=== PATIENT | male | born 2000 ===

== ENCOUNTER 2024-09-03 12:26 | Emergency (ER) | payer MEDICAID, SELFPAY ==
[2024-09-03 12:30] VITALS: BP 129/82; PULSE 79; RESP 20; TEMP 36.6; O2SAT 100; BMI 17.9
--- NOTE | 2024-09-03 12:30 | ED_ITS ---
[facility] - General Adult General Chief complaint: Eye Problems Stated complaint: pink eye ? Source: patient Mode of arrival: ambulatory Limitations: no limitations History of Present Illness ED Provider: Ira CABRAL narrative: Patient is a 24-year-old male presenting with complaint of left eye itching, redness and irritation for the past 4 days. Crusting in the morning. Feels as though symptoms are spreading to right eye. Does not wear contact lenses. Denies any concern for foreign body. Denies pain with eye movements. MD complaint: left eye irritation Onset (ago): day(s) Location: eyes Related Data Previous Rx's ?Medication ?Instructions ?Recorded ofloxacin 0.3 % eye drops See Rx Instructions ophthalmic 09/03/24 (eye) .COMPLEX #10 mL Allergies Allergy/AdvReac Type Severity Reaction Status Date / Time No Known Allergies Allergy Verified 09/03/24 12:31 Review of Systems Review of Systems: as per HPI Yes all other systems are reviewed and are negative Constitutional: Constitutional: Reports as per HPI Physical Exam ED Vital Signs: Vital signs have been reviewed and appear to be correct. Blood pressure normal. Heart rate normal. Respiratory rate normal. Temperature normal. Oxygen saturation normal. Const General: cooperative, healthy appearing and no acute distress Orientation/consciousness: oriented to person, oriented to place, oriented to time and patient oriented x3 Limitations: no limitations HENMT Head: Yes normocephalic and Yes atraumatic Ears: external ears normal General nose exam: Normal external nose present Face and sinus: Yes face symmetric Mouth: oropharynx normal and moist mucous membranes Throat: Yes uvula midline Eyes Alignment and Position: alignment normal and position normal Periorbital: periorbital findings normal Eyelids: Yes eyelids normal Conjunctivae: conjunctival abnormal left conjunctival injection diffuse Sclerae: sclerae normal Pupils: Equal, round and reactive pupils present EOM: EOMs intact bilaterally (pain free bilat) Neck Neck: Yes normal visual inspection and Yes supple Resp Effort & Inspection: normal respiratory effort and able to speak in complete sentences Auscultation: clear to auscultation bilaterally Cardio Rate: regular rate Rhythm: regular rhythm Heart sounds: S1 normal heart sound present and S2 normal heart sound present GI Palpation (GI): Soft to palpation and nontender Auscultation: normoactive bowel sounds General: Yes no CVA tenderness Back/Spine/Pelvis Back: no CVA tenderness Skin General skin exam: elasticity normal and turgor normal Neuro General: oriented to person, oriented to place, oriented to time, patient oriented x3, moves all extremities, no focal motor deficits and CN's II-XI intact bilaterally Cranial nerves: Yes Equal, round and reactive pupils present Cognition (Neuro): normal cognition Extrem General: Yes full ROM, Yes no pedal edema and Yes no calf tenderness Psych Mental Status: mental status grossly normal Affect: normal affect Thought process: Normal thought process present Medical Decision Making Medical Decision Making [facility] Narrative: Patient is a 24-year-old male presenting with complaint of left eye itching, redness and irritation for the past 4 days. On exam patient is awake, A+Ox3, VS WNL, afebrile, normal neurological exam without focal deficits, physical exam findings as above. Given reported symptoms and physical exam findings, initial differential includes viral vs bacterial vs allergic conjunctivitis. Do not suspect preseptal or orbital cellulitis. Will treat with ofloxacin drops, return symptoms discussed. Follow up with pcp. Patient verbalized understanding of and agreement with plan. Differential Diagnosis Differential Diagnoses: The differential diagnosis associated with the presentation includes as per [facility] External Record Review External record reviewed: Inpatient record, Office record and Outpatient record Prescription Management I considered prescription management with: Antibiotic Discharge Plan Discharge Clinical Impression: Conjunctivitis Qualifiers: Conjunctivitis type: acute Laterality: left Patient Disposition: Home, Self-Care Instructions: Conjunctivitis (ED) Additional Instructions: You were evaluated in the emergency department today for eye redness, itching, and discharge. You are being treated for conjunctivitis with antibiotic eyedrops. Please complete the full course as prescribed. Be sure to wash hands thoroughly before and after touching your eyes. You should follow up with your primary care provider or range master this week. Return to the emergency department if you develop changes in vision, increasing pain, fever 100.4F or greater, or any other concerning symptoms. Prescriptions: New ofloxacin 0.3 % drops See Rx Instructions .ROUTE .COMPLEX Qty: 10 0RF Rx Instructions: put 1-2 drps into affected eye(s) every 2-4 h x 2 days, then 1-2 drps 4 times/day days 3-7 Print Language: Greek
[2024-09-03 12:42] VITALS: BP 129/82; PULSE 79; RESP 20; TEMP 36.6; O2SAT 100
== END 2024-09-03 12:42 | disposition home or self-care (01) ==
PROVIDERS: Emergency Provider Emergency Medicine
DX: H10.32 Unspecified acute conjunctivitis, left eye (principal); H57.12 Ocular pain, left eye
CPT/HCPCS: 99282; 99283

== ENCOUNTER 2024-09-23 09:12 | Emergency (ER) | payer MEDICAID, SELFPAY ==
[2024-09-23 09:17] VITALS: BP 136/79; PULSE 88; RESP 16; TEMP 37; O2SAT 99; BMI 21.6
--- NOTE | 2024-09-23 09:35 | ED.EYEPROB ---
HPI - Eye Problem General Chief complaint: Eye Problems Stated complaint: l eye swelling Time Seen by Provider: 09/23/24 09:27 Source: patient, RN notes reviewed and old records reviewed Mode of arrival: ambulatory History of Present Illness ED Provider: Libra Cueva PA-C HPI Narrative: 24-year-old male with no significant past medical history presenting to the ED complaining of left eyebrow erythema, swelling, and discomfort x3 days. States had ingrown eyebrow hair which he pulled out and then squeezed at home with small amount of pus expressed. No reports increasing swelling. Denies vision change or loss, nausea, vomiting, fever, pain with EOMs, trauma Related Data Previous Rx's ?Medication ?Instructions ?Recorded ofloxacin 0.3 % eye drops See Rx Instructions ophthalmic 09/03/24 (eye) .COMPLEX #10 mL amoxicillin 875 mg-potassium 1 tab PO BID 7 days #14 tabs 09/23/24 clavulanate 125 mg tablet Allergies Allergy/AdvReac Type Severity Reaction Status Date / Time No Known Allergies Allergy Verified 09/23/24 09:19 Review of Systems Review of Systems: Yes all other systems are reviewed and are negative Constitutional: Constitutional: Reports as per HPI Eyes: Eyes: Denies photophobia PMFSH Past Medical History Attestation statement: The following information was validated with the patient. Source: old records reviewed Social History Social History Advance Directives: No Advance Directives Information Provided: Yes Physical Exam Vital Signs: Vital Signs: Last Vital Signs Temp 98.6 F 09/23/24 09:17 Pulse 88 09/23/24 09:17 Resp 16 09/23/24 09:17 BP 136/79 09/23/24 09:17 Pulse Ox 99 09/23/24 09:17 O2 Del Method Room Air 09/23/24 09:17 BMI result Body Mass Index 21.6 Const: General: cooperative, healthy appearing and no acute distress Orientation/consciousness: patient oriented x3 Limitations: no limitations HEENT: Head: Yes normal to inspection and Yes atraumatic Ears: hearing grossly normal bilaterally General nose exam: Normal external nose present Face and sinus: Yes normal facial exam Eyes: Other: Left lateral eyebrow with appreciable swelling, erythema, and induration. Mild surrounding swelling extending to infraorbital region. EOMs intact without entrapment or pain. No appreciable ocular involvement. Conjunctivae: conjunctivae normal Sclerae: sclerae normal Corneas: corneas normal Pupils: Equal, round and reactive pupils present EOM: EOMs intact bilaterally and no movement deficit Direct Ophthalmoscopy: normal light reflex and No photophobia Neck: Neck: Yes normal visual inspection and Yes no meningeal signs Resp: Effort & Inspection: normal respiratory effort and no respiratory distress Cardio: Rate: regular rate Skin: Rashes: no rashes Wounds: no wounds Neuro: General: patient oriented x3, tone normal and no meningeal signs Cranial nerves: Yes CN's II-XII intact bilaterally and Yes Equal, round and reactive pupils present Gait exam (Neuro): Normal gait present Extrem: General: Yes normal to inspection Medical Decision Making Medical Decision Making MDM Narrative: 24-year-old male with no significant past medical history presenting to the ED complaining of left eyebrow erythema, swelling, and discomfort x3 days. On exam vital signs stable, NAD, nontoxic appearing, physical exam as noted above. Concern for preseptal cellulitis vs indurated abscess. No evidence of orbital cellulitis or drainable collection at this time. Low suspicion for deeper infection including osteomyelitis Plan: P.o. antibiotics, PCP follow-up Please refer to course for remaining clinical decision making, interpretation of labs/imaging results, and discussions with consultants and/or family members. Results discussed with patient including worrisome signs and symptoms and strict return precautions, and when to return to the emergency department. They verbalized understanding and feel safe for discharge at this time. Differential Diagnosis Differential Diagnoses: The differential diagnosis associated with the presentation includes As above External Record Review External record reviewed: Inpatient record, Office record, Outpatient record, Prior outpatient labs, Prior outpatient radiology, Primary care record and Outside ED record Tests considered The following testing was considered but not selected: As above Prescription Management I considered prescription management with: Antibiotic Discharge Plan Discharge Clinical Impression: Preseptal cellulitis of left eye Patient Disposition: Home, Self-Care Instructions: Periorbital Cellulitis in Adults (ED) Additional Instructions: Augmentin as an antibiotic please take as prescribed Continue to apply warm compresses Take Tylenol and Motrin for pain/swelling Follow-up with her doctor If area worsens, becomes increasingly swollen, red, turns to a carbajal, you fever, vision changes return to the ED Prescriptions: New amoxicillin-pot clavulanate 875-125 mg tablet 1 tab PO BID 7 Days Qty: 14 0RF No Action ofloxacin 0.3 % drops See Rx Instructions .ROUTE .COMPLEX Qty: 10 0RF Rx Instructions: put 1-2 drps into affected eye(s) every 2-4 h x 2 days, then 1-2 drps 4 times/day days 3-7 Referrals: Physician,None [Primary Care Provider] - 5 days Stand Alone Forms: Work/School Release Print Language: Romansh
[2024-09-23 10:01] VITALS: BP 136/79; PULSE 88; RESP 16; TEMP 37; O2SAT 99
== END 2024-09-23 10:02 | disposition home or self-care (01) ==
PROVIDERS: Emergency Provider Emergency Medicine Emergency Medical Services
DX: L03.213 Periorbital cellulitis (principal); L53.9 Erythematous condition, unspecified; Z79.899 Other long term (current) drug therapy
CPT/HCPCS: 99282; 99283

== ENCOUNTER 2024-11-18 17:41 | Emergency (ER) | payer OTHER, SELFPAY ==
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
[2024-11-18 17:55] VITALS: BP 132/80; PULSE 90; RESP 16; TEMP 36.9; O2SAT 98; BMI 18.0
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
--- NOTE | 2024-11-18 18:39 | PC.NURSE ---
pt a&ox3, c/o 05/04 headache/neck stiffness an dmid back pain with walking, pt admitted that he did not take any OTC medications to help with pain at home. pt awaiting radiology, call ludwig within reach, plan of care ongoing.
[2024-11-18 20:19] VITALS: BP 114/62; PULSE 74; RESP 16; TEMP 36.9; O2SAT 97
[2024-11-18] MEDS: Ibuprofen 800 MG TABLET PO (21:05)
[2024-11-18] MEDS: Acetaminophen 325 MG TABLET 975 MG PO (21:05)
[2024-11-18 21:19] VITALS: BP 114/62; PULSE 74; RESP 16; TEMP 36.9; O2SAT 97
== END 2024-11-18 21:19 | disposition home or self-care (01) ==
PROVIDERS: Emergency Provider Emergency Medicine
DX: S19.9XXA Unspecified injury of neck, initial encounter (principal); S39.92XA Unspecified injury of lower back, initial encounter; M54.50 Low back pain, unspecified; M54.2 Cervicalgia; R51.9 Headache, unspecified; V43.52XA Car driver injured in collision with other type car in traffic accident, initial encounter; Y93.9 Activity, unspecified; Y92.488 Other paved roadways as the place of occurrence of the external cause; Y99.8 Other external cause status
CPT/HCPCS: 70450; 72100; 72125; 99284